=== PATIENT | female | born 1965 | race Caucasian/White ===

== ENCOUNTER 2018-04-07 13:45 | Emergency (ER) | payer OTHER ==
[~2018-04-07] VITALS: Ht 165.1 cm; Wt 108.9 kg
[~2018-04-07 13:45] MED LIST: ASPIRIN325 PO; BENZONATATE200 MG PO; BUPROPION XL300 MG PO; CELEBREX 200 M200 M1 PO; COLACE100 MG PO; FLEXERIL PO; FLONASE 0.05%50 MCG NASAL; IMITREX100 MG PO; INDERAL LA160 M1 PO; LEXAPRO20 MG PO; METAMUCIL1 EAC1 PO; MOM PO; NAPROSYN500 MG PO; NEURONTIN600 MG PO; NORCO 10-325 T1 EACH PO; OXYCODONE HCL 55 MG PO; TOPAMAX 100 MG100 MG PO
[2018-04-07] MEDS ORDERED: ZANAFLEX4 MG PO (14:02)
[2018-04-07] MEDS ORDERED: NORCO 10-325 T1 EACH PO (14:02)
[2018-04-07 14:05] LABS: ABSOLUTE BASOPHILS 0.2 thou/uL (0.0-0.2); ABSOLUTE EOSINOPHILS 0.1 thou/uL (0.0-0.7); ABSOLUTE LYMPHOCYTES 2.7 thou/uL (0.8-5.3); ABSOLUTE NEUTROPHILS 12.4 thou/uL (1.6-8.1); EOSINOPHILS 0.6 %; HEMATOCRIT 41.4 % (37.0-47.0); HEMOGLOBIN 13.5 gm/dL (12.0-15.0); LYMPHOCYTES 16.5 %; MCHC 32.7 g/dL (28.0-37.0); MCV 88.6 fL (80.0-100.0); MONOCYTES 6.3 %; MPV 9.5 fl. (7.2-11.1); NUCLEATED RBCS 0 /100WBC; PLATELET COUNT* 307 thou/uL (150-400); POLYS 75.6 %; RBC 4.67 mil/uL (4.20-5.00); RDW-CV 15.5 % (10.5-14.5); WBC 16.4 thou/uL (4.0-11.0)
[2018-04-07 14:13] LABS: CALCIUM 9.2 mg/dL (8.5-10.1); CREATININE 1.1 mg/dL (0.6-1.3); POTASSIUM 3.5 mmol/L (3.5-5.1)
[2018-04-07 14:25] LABS: TOTAL BILIRUBIN 0.9 mg/dL (<0.1-1.0); TOTAL PROTEIN 8.1 g/dL (6.4-8.2)
[2018-04-07 15:53] LABS: URINE BILIRUBIN NEGATIVE (Negative); URINE BLOOD NEGATIVE (Negative); URINE CLARITY CLEAR; URINE COLOR YELLOW; URINE GLUCOSE-RANDOM NEGATIVE (Negative); URINE KETONES 2+ (Negative); URINE LEUKOCYTES-REFLEX TRACE (Negative); URINE NITRITE-REFLEX NEGATIVE (Negative); URINE PROTEIN NEGATIVE (Negative); URINE SPECIFIC GRAVITY <= 1.005 (1.005-1.030); URINE UROBILINOGEN 0.2 E.U./dl (0.2-1.0)
[2018-04-07 16:14] LABS: CASTS None Seen /LPF (None Seen); CRYSTALS None Seen /LPF (None Seen); MUCUS 0-3 Light strn/LPF (None Seen); SQUAMOUS 0-3 Few /LPF (0-3); URINE RBC 0-2 Rare /HPF (0-2); URINE WBC-REFLEX 0-5 Rare /HPF (0-5)
[2018-04-07] MEDS ORDERED: PROMS25 WY RECTAL (18:38)
[2018-04-07] MEDS ORDERED: ZOFRAN4 MG PO (18:38)
[2018-04-07 19:16] VITALS: BP 163/78
[2018-04-08] MEDS ORDERED: CLARITIN10 MG PO (08:36)
--- NOTE | 2018-04-08 19:31 | EKG ---
[place] [address] ELECTROCARDIOGRAM REPORT Name: ROSAS IQBAL Room: [facility]#: [id number] Admission: 04/07/18 Attend Phys: Discharge: 04/07/18 Date of : 63 Report #: [id number] THIS REPORT FOR: //name// [facility] ED Test Date: 2018-04-07 Test Time: 14:47:51 Pat Name: ROSAS IQBAL Department: Room: Gender: F [employer]working [employer]: Sanjay DE LA O : 1965 Requested By: Ciarra Melendez Order Number: [id number] MD: Willy Craig Measurements Intervals [place] Rate: 61 P: 49 DE: 135 QRS: 28 QRSD: 138 T: 12 QT: 507 QTc: 511 Interpretive Statements Sinus rhythm Incomplete Right bundle branch block Compared to ECG 04/27/2014 09:53:00 No significant changes noted Electronically Signed On 04-08-2018 19:30:57 CDT by Willy Craig [email or web address] <ELECTRONICALLY SIGNED> By: Willy Craig MD, [facility] 04/08/18 1930 D: [id number] Willy Craig MD, FACC /EPI
== END 2018-04-07 19:17 | disposition home or self-care (01) ==
LOC: M.ERS 13:45
PROVIDERS: Nurse Practitioner Family
DX: R19.7 Diarrhea, unspecified (principal); R11.2 Nausea with vomiting, unspecified; R10.13 Epigastric pain; I10 Essential (primary) hypertension; G43.909 Migraine, unspecified, not intractable, without status migrainosus; Z98.84 Bariatric surgery status; Z90.710 Acquired absence of both cervix and uterus; Z98.890 Other specified postprocedural states

== ENCOUNTER 2018-04-08 08:29 | Inpatient (IN) | payer OTHER ==
[~2018-04-08] VITALS: Ht 167.6 cm; Wt 104.2 kg
[~2018-04-08 08:29] MED LIST changes: +PROMS25 WY RECTAL; +ZANAFLEX4 MG PO; +ZOFRAN4 MG PO
[2018-04-08] MEDS ORDERED: CLARITIN10 MG PO (08:36)
[2018-04-08 08:39] VITALS: BP 141/93
[2018-04-08 09:03] LABS: URINE BILIRUBIN NEGATIVE (Negative); URINE BLOOD 1+ (Negative); URINE CLARITY CLEAR; URINE COLOR YELLOW; URINE GLUCOSE-RANDOM NEGATIVE (Negative); URINE KETONES 2+ (Negative); URINE LEUKOCYTES-REFLEX NEGATIVE (Negative); URINE NITRITE-REFLEX NEGATIVE (Negative); URINE PROTEIN 1+ (Negative)
[2018-04-08 09:16] LABS: CASTS None Seen /LPF (None Seen); CRYSTALS None Seen /LPF (None Seen); MUCUS 4-6 Moderate strn/LPF (None Seen); SQUAMOUS 4-10 Moderate /LPF (0-3); URINE RBC 3-10 Few /HPF (0-2); URINE WBC-REFLEX 0-5 Rare /HPF (0-5)
[2018-04-08 09:28] LABS: ABSOLUTE LYMPHOCYTES 1.2 thou/uL (0.8-5.3); ABSOLUTE MONOCYTES 0.6 thou/uL (0.0-1.2); BASOPHILS 0.1 %; HEMATOCRIT 38.8 % (37.0-47.0); LYMPHOCYTES 10.8 %; MCH 29.4 pg (26.0-34.0); MCHC 33.5 g/dL (28.0-37.0); MCV 87.8 fL (80.0-100.0); MONOCYTES 5.4 %; MPV 9.8 fl. (7.2-11.1); NUCLEATED RBCS 0 /100WBC; PLATELET COUNT* 278 thou/uL (150-400); POLYS 83.7 %; RBC 4.42 mil/uL (4.20-5.00); RDW-CV 15.4 % (10.5-14.5); WBC 10.8 thou/uL (4.0-11.0)
[2018-04-08 09:30] LABS: CALCIUM 9.9 mg/dL (8.5-10.1); CREATININE 1.3 mg/dL (0.6-1.3)
[2018-04-08 09:34] LABS: ALBUMIN 4.2 g/dL (3.4-5.0); TOTAL BILIRUBIN 1.8 mg/dL (<0.1-1.0); TOTAL PROTEIN 8.3 g/dL (6.4-8.2)
[2018-04-08 12:55] VITALS: BP 160/91
[2018-04-08 13:00] VITALS: BP 147/77
[2018-04-08 17:10] VITALS: BP 132/74
[2018-04-08 20:00] VITALS: BP 120/72
[2018-04-09 07:30] VITALS: BP 119/64
[2018-04-09 09:20] LABS: CALCIUM 8.5 mg/dL (8.5-10.1); MAGNESIUM 2.2 mg/dL (1.8-2.4)
[2018-04-09 09:23] LABS: POTASSIUM 2.9 mmol/L (3.5-5.1)
[2018-04-09 16:05] VITALS: BP 114/69
[2018-04-09 20:10] VITALS: BP 120/74
[2018-04-10 07:25] VITALS: BP 107/65
[2018-04-10 12:38] VITALS: BP 107/65
== END 2018-04-10 13:05 | disposition home or self-care (01) | DRG 392 ==
LOC: M.ERS 08:29 → M.TBA-ER 10:01 → M.3W 10:01
PROVIDERS: Emergency Medicine; ADMIT Internal Medicine
DX: A08.4 Viral intestinal infection, unspecified (principal); R65.10 Systemic inflammatory response syndrome (SIRS) of non-infectious origin without acute organ dysfunction; G43.909 Migraine, unspecified, not intractable, without status migrainosus; F32.9 Major depressive disorder, single episode, unspecified; I10 Essential (primary) hypertension; M47.9 Spondylosis, unspecified; Z91.048 Other nonmedicinal substance allergy status; Z79.899 Other long term (current) drug therapy; Z90.710 Acquired absence of both cervix and uterus